=== PATIENT | male | born 1945 | race Caucasian/White ===

== ENCOUNTER 2016-11-06 11:08 | Day surgery (SDC) | payer MEDICARE, OTHER ==
[2016-11-06] MEDS ORDERED: LACTATED RINGERS 1,000 ML IV ONE ×2 (11:33→14:41)
[2016-11-06] MEDS ORDERED: MIDAZOLAM 2 MG/2 ML VIAL IVP ONE (13:41)
[2016-11-06] MEDS ORDERED: fentaNYL 250 MCG/5 ML VIAL IVP ONE (13:41)
[2016-11-06] MEDS ORDERED: ONDANSETRON ODT 4 MG TABLET ONE (15:30)
== END 2016-11-06 11:09 | disposition home or self-care (01) ==
PROC: 0DBH8ZZ Excision of Cecum, Via Natural or Artificial Opening Endoscopic (ICD-10-PCS; 2016-11-06)
PROC: 0DBL8ZZ Excision of Transverse Colon, Via Natural or Artificial Opening Endoscopic (ICD-10-PCS; 2016-11-06)
PROC: 0DBK8ZZ Excision of Ascending Colon, Via Natural or Artificial Opening Endoscopic (ICD-10-PCS; principal; 2016-11-06 12:30)
DX: Z12.11 Encounter for screening for malignant neoplasm of colon (principal); D12.0 Benign neoplasm of cecum; D12.2 Benign neoplasm of ascending colon; D12.3 Benign neoplasm of transverse colon; K64.8 Other hemorrhoids; K64.4 Residual hemorrhoidal skin tags
CPT/HCPCS: 45380; 45385; J3010; J7120; Q0162

== ENCOUNTER 2021-06-21 12:48 | Outpatient (CLI) | payer OTHER | END 2021-06-21 12:49 | disposition home or self-care (01) | LOC: COV 12:48 | PROVIDERS: ATTEND Family Medicine | DX: R53.83 Other fatigue (principal); Z20.822 Contact with and (suspected) exposure to COVID-19 ==

== ENCOUNTER 2022-09-13 07:24 | Outpatient (CLI) | payer OTHER ==
--- NOTE | 2022-09-13 12:33 | Ultrasound Report ---
INDICATIONS: ANEURYSM OF AORTA TECHNIQUE: Real-time scanning was performed of the retroperitoneal organs, with image documentation. COMPARISON: None. FINDINGS: Aorta: Proximal aortic diameter measures 2.8 x 2.5 cm. Mid-aorta measures 2.3 x 2.3 cm. Distal aor tic diameter is 3.1 x 2.9 cm. Iliac arteries: Right common iliac artery measures 1.5 x 1.6 cm. Left common iliac artery measures 1.1 x 1.1 cm. Calcified atherosclerotic plaque seen throughout the abdominal aorta and iliac vessels. IMPRESSION: Distal abdominal aortic aneurysm measuring 3.1 x 2.9 cm transverse diameter. Scattered atheroscleroti c vascular disease. Reviewed by: Neptali Seth MD on 09/13/2022 12:32 PM PST Approved by: Neptali Seth MD on 09/13/2022 12:32 PM PST Station ID: [id number]
== END 2022-09-13 07:25 | disposition home or self-care (01) ==
LOC: DI 07:24
PROVIDERS: ATTEND Nurse Practitioner Primary Care
DX: I71.40 Abdominal aortic aneurysm, without rupture, unspecified (principal); I70.90 Unspecified atherosclerosis

== ENCOUNTER 2023-01-11 09:00 | Outpatient (CLI) | payer OTHER ==
--- NOTE | 2023-01-11 14:53 | CT Report ---
PROCEDURE: Low Dose Lung Cancer Screen INDICATIONS: HIST OF SMOKING TECHNIQUE: Noncontrast low-dose axial images were acquired from the pulmonary apices to the posterior costophren ic angles. Multiplanar MIP reformats were then reconstructed. For radiation dose reduction, the follo wing was used: automated exposure control, adjustment of mA and/or kV according to patient size. COMPARISON: None. FINDINGS: Image quality: Excellent. Prior cancer history: Unknown Lungs and pleura: No pleural effusions. No pneumothorax. There is mild upper lobe predominant pulmon lorraine emphysematous changes. Patchy ill-defined groundglass opacities of the anteromedial left upper lo be. No focal consolidation seen. Mediastinum: Heart size is normal. No pericardial effusions. No mediastinal adenopathy by size criter ia. No large vessel abnormality. Scattered atherosclerotic calcifications of the coronary arteries. Chest wall and lower neck: Thyroid is unremarkable. No axillary or supraclavicular adenopathy by size . Bones: No aggressive osseous abnormality. No acute compression fractures. Multilevel spondylosis of t he imaged spine. Upper Abdomen: Unremarkable. IMPRESSION: Patchy groundglass opacities of the left upper lobe which likely represents an inflammatory or infect ious process. Underlying neoplastic process not completely excluded. Lung RAD: 3 - Probably Benign. Recommendation: Follow up in 3 months with LDCT to document stability versus resolution. Non-Lung Significant Findings: Coronary Arterial Calcification - Moderate or Severe Reviewed by: Neptali Seth MD on 01/11/2023 2:52 PM PDT Approved by: Neptali Seth MD on 01/11/2023 2:52 PM PDT Station ID: [id number]
== END 2023-01-11 09:01 | disposition home or self-care (01) ==
LOC: DI 09:00
PROVIDERS: ATTEND Nurse Practitioner Primary Care
DX: Z12.2 Encounter for screening for malignant neoplasm of respiratory organs (principal); Z87.891 Personal history of nicotine dependence; R91.8 Other nonspecific abnormal finding of lung field

== ENCOUNTER 2023-05-06 10:14 | Outpatient (CLI) | payer OTHER ==
--- NOTE | 2023-05-06 14:13 | CT Report ---
PROCEDURE: CHEST WO INDICATIONS: PATCHY GROUNDLASS OPACITIES OF EDNA - 3 MO F/U TECHNIQUE: Noncontrast 1mm axial images were acquired from the pulmonary apices to the posterior costophrenic an gles. Axial 5 mm soft tissue kernel reconstructions were performed as well as 8 mm axial MIP and cor onal and sagittal 5 mm reformations. For radiation dose reduction, the following was used: automate d exposure control, adjustment of mA and/or kV according to patient size. COMPARISON: 01/11/2023 FINDINGS: Image quality: Excellent. Lungs and pleura: There is a background of mild upper lobe centrilobular and paraseptal emphysematous change. Focal interstitial thickening/fibrosis is present anteriorly in the left upper lobe, similar in extent to that seen previously. Mild interstitial reticulation is seen peripherally in the right middle and lower lobe. No discrete ground glass opacities or consolidations. No pleural effusions. No pneumothorax. Central and peripheral airways are normal caliber without bronchial wall thickening o r bronchiectasis. Mediastinum: Heart size is normal. No pericardial effusion. Moderate coronary artery calcification. N o large vessel abnormality. No mediastinal adenopathy by size criteria. No anterior or posterior med iastinal mass. Normal esophagus with a tiny hiatal hernia Chest wall and lower neck: Thyroid is unremarkable. No axillary or supraclavicular adenopathy by size . Bones: No aggressive osseous abnormality. Upper Abdomen: Unremarkable. IMPRESSION: 1. Stable area of interstitial thickening and emphysematous change in the anterior left upper lobe fox ggesting focal fibrosis. No acute groundglass opacities or consolidations. 2. Findings of mild emphysema. 3. No suspicious lung nodules. Reviewed by: Dipika Bradshaw MD on 05/06/2023 2:12 PM PDT Approved by: Dipika Bradshaw MD on 05/06/2023 2:12 PM PDT Station ID: [id number]
== END 2023-05-06 10:15 | disposition home or self-care (01) ==
LOC: DI 10:14
PROVIDERS: ATTEND Nurse Practitioner Primary Care
DX: J43.9 Emphysema, unspecified (principal)

== ENCOUNTER 2023-06-14 06:16 | Day surgery (SDC) | payer OTHER ==
[2023-06-14] MEDS ORDERED: LACTATED RINGERS 1,000 ML IV ONE (06:30)
[2023-06-14] MEDS ORDERED: PROPOFOL 500 MG/50 ML 500 MG/50 ML VIAL ONE (06:51)
[2023-06-14] MEDS ORDERED: GLYCOPYRROLATE 1 MG/5 ML VIAL ONE (06:52)
--- NOTE | 2023-06-14 07:11 | ANESTHESIA ---
Pre-Anesthesia VS, & Labs - Diagnosis screening, hx of colon polyps - Procedure colonoscopy Vital Signs: Temp Pulse Resp BP Pulse Ox O2 Flow Rate 36.2 C L 82 17 132/109 H 97 06/14/23 06:32 06/14/23 06:32 06/14/23 06:32 06/14/23 06:32 06/14/23 06:32 Height: 5 ft 7 in Weight (kg): 92.3 kg Body Mass Index: 31.8 BMI Classification: Obese - NPO >8 hours - Lab Results Lab results reviewed: Yes Home Medications and Allergies Home Medications: Ambulatory Orders Simvastatin [Zocor] 5 mg PO DAILY 06/13/23 amLODIPine [Norvasc] 5 mg PO DAILY 06/13/23 Simvastatin [Zocor] 5 mg PO DAILY 06/13/23 amLODIPine [Norvasc] 5 mg PO DAILY 06/13/23 Allergies/Adverse Reactions: Allergies Allergy/AdvReac Type Severity Reaction Status Date / Time Penicillins Allergy Hives Verified 06/13/23 12:23 Izkcrof-VNF-MgJ Reductase AdvReac Cramps Verified 04/08/20 10:35 Inhibitor [Iianqga-Hgc-Mfz Reductase Inhibitor] Anes History & Medical History - Anesthetic History Anesthesia Complications: reports: No previous complications Family history of Anesthesia Complications: Denies Family history of Malignant Hyperthermia: Denies - Medical History Cardiovascular: reports: Hypertension, High cholesterol Pulmonary: reports: Other (ct suggests some emphysematic changes) Gastrointestinal: reports: Colon polyps Urinary: reports: None Neuro: reports: Peripheral neuropathy Musculoskeletal: reports: None Endocrine/Autoimmune: reports: None Blood Disorders: reports: None Skin: reports: Psoriasis Smoking Status: Former smoker Psychosocial: reports: Alcohol - Surgical History General: reports: Colonoscopy Urologic: reports: Testicular surgery Orthopedic: reports: Other Exam General: Alert, Oriented x3, Cooperative Dental: Poor dentition Mouth Openin Fingerbreadth Neck Mobility: Normal Mallampati classification: III Thyromental Distance: 4-6 cm Respiratory: Lungs clear Cardiovascular: Regular rate Plan Anesthesia Type: General, MAC Consent for Procedure(s) Verified and Reviewed: Yes Code Status: Attempt Resuscitation ASA classification: 2-Mild systemic disease Is this case an emergency?: No
--- NOTE | 2023-06-14 07:26 | HISTORY & PHYSICAL EXAMINATION ---
Chief Complaint - Chief Complaint Chief Complaint: here for colonoscopy History of Present Illness - History Obtained From Records Reviewed: yes History obtained from: pt Exam Limitations: none - History of Present Illness HPI Comment/Other: history numerous colon polyps. no gi symptoms History - Past Medical History Cardiovascular: reports: Hypertension, High cholesterol Respiratory: reports: Other (ct suggests some emphysematic changes) Neuro: reports: Peripheral neuropathy Endocrine/Autoimmune: reports: None GI: reports: Colon polyps : reports: None HEENT: reports: Chronic vision loss Psych: reports: None Musculoskeletal: reports: None Derm: reports: Psoriasis MRSA Hx?: No - Past Surgical History General: reports: Colonoscopy Ortho: reports: Other Meds/Allgy - Home Medications Home Medications: Ambulatory Orders Medication Instructions Recorded Confirmed Simvastatin [Zocor] 5 mg PO DAILY 06/13/23 06/13/23 amLODIPine [Norvasc] 5 mg PO DAILY 06/13/23 06/13/23 - Allergies Allergies/Adverse Reactions: Allergies Allergy/AdvReac Type Severity Reaction Status Date / Time Penicillins Allergy Hives Verified 06/13/23 12:23 [id number] Reductase AdvReac Cramps Verified 04/08/20 10:35 Inhibitor [Wuavamp-Hxq-Epq Reductase Inhibitor] Review of Systems - Other Findings Other Findings: 10 pt ros as above otherwise unremarkable Exam - Vital Signs Vital Signs: Vital Signs x48h Temp Pulse Resp BP Pulse Ox 06/14/23 06:32 36.2 C L 82 17 132/109 H 97 - Physical Exam General Appearance: positive: No acute distress, Alert Eyes Bilateral: positive: PERRL, EOMI ENT: positive: No signs of dehydration Neck: positive: No JVD, Trachea midline Respiratory: positive: No respiratory distress Cardiovascular: positive: Regular rate & rhythm Abdomen: positive: No distention Neurologic/Psychiatric: positive: Oriented x3 Conclusion/Plan - Problem List (1) Colon cancer screening Conclusion/Plan: history numerous colon polyps. plan colonoscopy. parq held and consent obtained - Lab Results Lab results reviewed: Yes
[2023-06-14] MEDS ORDERED: MIDAZOLAM 2 MG/2 ML VIAL ONE (07:47)
[2023-06-14] MEDS ORDERED: LACTATED RINGERS 200 ML IV ONE (08:27)
--- NOTE | 2023-06-14 13:18 | ANESTHESIA POST OP EVALUATION ---
Anesthesia Post Eval - Post Anesthesia Eval Vitals: Last Vital Signs Temp 36.2 C L 06/14/23 08:56 Pulse 73 06/14/23 08:56 Resp 14 06/14/23 08:56 BP 149/73 H 06/14/23 08:56 Pulse Ox 95 06/14/23 08:56 O2 Flow Rate CV Function Including HR & BP: Stable Pain Control: Satisfactory Nausea & Vomiting: Negative Mental Status: Baseline Respiratory Status: Airway Patent Hydration Status: Satisfactory Anesthesia Complications: None
[2023-06-14 15:56] VITALS: BP 149/73; O2SAT 95
== END 2023-06-14 06:17 | disposition home or self-care (01) ==
LOC: SDS 06:16
PROVIDERS: ATTEND Surgery
PROC: 0DBN8ZZ Excision of Sigmoid Colon, Via Natural or Artificial Opening Endoscopic (ICD-10-PCS; 2023-06-14)
PROC: 0DBP8ZZ Excision of Rectum, Via Natural or Artificial Opening Endoscopic (ICD-10-PCS; 2023-06-14)
PROC: 0DBM8ZZ Excision of Descending Colon, Via Natural or Artificial Opening Endoscopic (ICD-10-PCS; 2023-06-14)
PROC: 0DBH8ZZ Excision of Cecum, Via Natural or Artificial Opening Endoscopic (ICD-10-PCS; 2023-06-14)
PROC: 0DBK8ZZ Excision of Ascending Colon, Via Natural or Artificial Opening Endoscopic (ICD-10-PCS; principal; 2023-06-14 07:30)
DX: Z12.11 Encounter for screening for malignant neoplasm of colon (principal); D12.4 Benign neoplasm of descending colon; D12.8 Benign neoplasm of rectum; D12.5 Benign neoplasm of sigmoid colon; K63.5 Polyp of colon; K57.30 Diverticulosis of large intestine without perforation or abscess without bleeding; E66.9 Obesity, unspecified; Z68.31 Body mass index [BMI] 31.0-31.9, adult; Z87.891 Personal history of nicotine dependence
CPT/HCPCS: 45380; 45385; J7120

== ENCOUNTER 2024-01-15 12:06 | Outpatient (CLI) | payer OTHER | END 2024-01-15 12:07 | disposition home or self-care (01) | LOC: DI 12:06 | PROVIDERS: ATTEND Nurse Practitioner Primary Care | DX: R01.1 Cardiac murmur, unspecified (principal); I35.0 Nonrheumatic aortic (valve) stenosis | CPT/HCPCS: 93307 ==